=== PATIENT | male | born 1955 | race Caucasian/White ===

== ENCOUNTER → 2023-11-12 07:23 | Outpatient (REF) | payer MEDICARE, OTHER, SELFPAY ==
[2023-11-12 08:05] LABS: Urine Albumin Negative (Neg - Trace); Urine Bilirubin Negative (Negative); Urine Character Clear (Clear); Urine Color Yellow; Urine Glucose Negative (Negative); Urine Ketone Trace (Negative); Urine Leukocyte Negative (Negative); Urine Nitrite Negative (Negative); Urine Occult Blood Negative (Negative); Urine Urobilinogen Negative (Neg - 1+)
[2023-11-12 08:10] LABS: % Basophils 0.4 % (0-2); % Eosinophils 4.3 % (0-6); % Immature Granulocytes 0.2 % (0-0.5); % Monocytes 9.2 % (1.7-9.3); % Neutrophils 53.9 % (42.2-75.2); Absolute Eosinophils 0.2 10^3/uL (0-0.7); Absolute Lymphocytes 1.5 10^3/uL (1.2-3.4); Absolute Monocytes 0.4 10^3/uL (0.1-0.6); Absolute Neutrophils 2.5 10^3/uL (1.4-6.5); Hematocrit 37.3 % (39.0-52.0); Hemoglobin 13.1 g/dL (13.0-18.0); Mean Corp Hgb Conc. 35.1 g/dL (33.0-37.0); Mean Corpuscular Hgb 31.6 pg (27.0-31.0); Mean Corpuscular Volume 89.9 fL (80.0-94.0); Mean Platelet Volume 10.7 fL (7.4-10.4); Nucleated Red Blood Cells % 0 % (-); Platelet Count 200 10^3/uL (130-400); Red Blood Cell Count 4.15 10^6/uL (4.70-6.10); Red Cell Dist. Width 13.2 % (11.5-14.5); White Blood Cell Count 4.7 10^3/uL (4.8-10.8)
[2023-11-12 08:26] LABS: ALT (SGPT) 26 U/L (0-50); AST (SGOT) 29 U/L (17-59); Albumin 4.4 g/dl (3.5-5.0); Alkaline Phosphatase 58 U/L (38-126); Blood Urea Nitrogen 10 mg/dl (9-20); Calcium 9.8 mg/dl (8.4-10.2); Carbon Dioxide 23 mmol/L (22-30); Chloride 101 mmol/L (98-107); Glucose 107 mg/dl (70-99); HDL Cholesterol 34 mg/dl; LDL Cholesterol, Calculated 65 mg/dl; Potassium 3.7 mmol/L (3.5-5.1); Sodium 137 mmol/L (135-145); Total Bilirubin 0.5 mg/dl (0.2-1.3); Total Cholesterol 118 mg/dl (50-199); Total Protein 7.2 g/dl (6.3-8.2); Triglyceride 95 mg/dl (10-149); Very Low Density Lipoprotein 19 mg/dl (0-30); eGFR > 60.00
[2023-11-12 09:04] LABS: Glycohemoglobin (HgbA1c) 6.5 % (4.0-5.6)
[2023-11-12 09:13] LABS: PSA, Total - Screen 0.37 ng/ml (0.0-4.0)
[2023-11-12 09:34] LABS: Microalbumin, Random Urine < 0.6 mg/dl (0.6-1.7)
== END ==
LOC: REG 07:23
PROVIDERS: ATTENDING PHYSICIAN Family Medicine
DX: E11.59 Type 2 diabetes mellitus with other circulatory complications (principal); I10 Essential (primary) hypertension; E78.5 Hyperlipidemia, unspecified; I25.10 Atherosclerotic heart disease of native coronary artery without angina pectoris; Z12.5 Encounter for screening for malignant neoplasm of prostate
CPT/HCPCS: 36415; 80053; 80061; 81003; 82043; 83036; 85025; G0103

== ENCOUNTER 2024-11-19 06:20 | Day surgery (SDC) | payer MEDICARE, OTHER, SELFPAY ==
[2024-11-19 07:51] LABS: Glucose - Point of Care 113 mg/dl (70-99)
== END 2024-11-19 09:39 | disposition home or self-care (01) ==
LOC: GI 06:20
PROVIDERS: ATTENDING PHYSICIAN Internal Medicine Gastroenterology; FAMILY PHYSICIAN Nurse Practitioner Family
DX: Z12.11 Encounter for screening for malignant neoplasm of colon (principal); D12.4 Benign neoplasm of descending colon; Q43.8 Other specified congenital malformations of intestine; D12.8 Benign neoplasm of rectum; K62.1 Rectal polyp; Z86.0101 Personal history of adenomatous and serrated colon polyps
CPT/HCPCS: 45380; 88305; 82962

== ENCOUNTER → 2025-02-23 07:58 | Outpatient (REF) | payer MEDICARE, OTHER, SELFPAY ==
[2025-02-23 09:12] LABS: Hematocrit 36.2 % (39.0-52.0); Hemoglobin 12.5 g/dL (13.0-18.0); Mean Corp Hgb Conc. 34.5 g/dL (33.0-37.0); Mean Corpuscular Volume 89.2 fL (80.0-94.0); Platelet Count 193 10^3/uL (130-400); Red Cell Dist. Width 12.8 % (11.5-14.5)
[2025-02-23 09:52] LABS: ALT (SGPT) 24 U/L (0-50); AST (SGOT) 23 U/L (17-59); Albumin 4.4 g/dl (3.5-5.0); Alkaline Phosphatase 64 U/L (38-126); Blood Urea Nitrogen 18 mg/dl (9-20); Calcium 9.5 mg/dl (8.4-10.2); Carbon Dioxide 25 mmol/L (22-30); Chloride 104 mmol/L (98-107); Glucose 84 mg/dl (70-99); HDL Cholesterol 35 mg/dl; LDL Cholesterol, Calculated 66 mg/dl; Potassium 3.7 mmol/L (3.5-5.1); Sodium 139 mmol/L (135-145); Total Protein 7.2 g/dl (6.3-8.2); Very Low Density Lipoprotein 20 mg/dl (0-30); eGFR > 60.00
[2025-02-23 10:10] LABS: PSA, Total - Screen 0.32 ng/ml (0.0-4.0)
[2025-02-23 12:12] LABS: Glycohemoglobin (HgbA1c) 6.2 % (4.0-5.6)
== END ==
LOC: REG 07:58
PROVIDERS: ATTENDING PHYSICIAN Nurse Practitioner Family
DX: Z12.5 Encounter for screening for malignant neoplasm of prostate (principal); Z13.21 Encounter for screening for nutritional disorder; Z13.1 Encounter for screening for diabetes mellitus; Z13.29 Encounter for screening for other suspected endocrine disorder; E78.00 Pure hypercholesterolemia, unspecified
CPT/HCPCS: 36415; 80053; 80061; 82652; 83036; 84439; 84443; 85027; G0103